=== PATIENT | male | born 1960 | race Caucasian/White ===

== ENCOUNTER → 2017-01-06 | Outpatient (CLI) | payer OTHER | LOC: NM 13:00 | DX: R10.11 Right upper quadrant pain (principal) | CPT/HCPCS: 78227; A9537; J2805 ==

== ENCOUNTER → 2017-01-09 | Outpatient (CLI) | payer OTHER | LOC: KOH-I 13:54 | DX: R10.11 Right upper quadrant pain (principal); N20.0 Calculus of kidney | CPT/HCPCS: 74150 ==

== ENCOUNTER 2017-03-26 14:26 | Emergency (ER) | payer OTHER ==
[2017-03-26 16:16] LABS: HEMOGLOBIN 14.2 gm/dl (14.0-17.5); RED BLOOD COUNT 4.65 M/UL (4.20-5.50); WHITE BLOOD COUNT 10.1 K/UL (4.5-11.0)
[2017-03-26 16:36] LABS: BUN/CREATININE RATIO 19 (0-10)
== END 2017-03-26 19:00 | disposition home or self-care (01) ==
LOC: ER1 14:26
PROVIDERS: Radiology Radiation Oncology
DX: N13.2 Hydronephrosis with renal and ureteral calculous obstruction (principal); E11.65 Type 2 diabetes mellitus with hyperglycemia; I10 Essential (primary) hypertension; F17.220 Nicotine dependence, chewing tobacco, uncomplicated
CPT/HCPCS: 36415; 80053; 81001; 83690; 85025; 87086; 96361; 96374; 96375; 96376; 99284; J2270; J2405; J2550

== ENCOUNTER 2020-10-23 14:05 | Inpatient (IN) | payer OTHER ==
[2020-10-23 15:00] LABS: HEMOGLOBIN 15.1 gm/dl (14.0-17.5); RED BLOOD COUNT 4.89 M/UL (4.20-5.50); WHITE BLOOD COUNT 12.1 K/UL (4.5-11.0)
[2020-10-23 15:16] LABS: BUN/CREATININE RATIO 22 (0-10)
[2020-10-23] MEDS ORDERED: VASCEPA1 GM PO (18:14)
[2020-10-23] MEDS ORDERED: ATORVASTATIN CA40 MG PO (18:14)
[2020-10-23] MEDS ORDERED: METOPROLOL SUCC50 MG PO (18:15)
[2020-10-23] MEDS ORDERED: ASPIRIN CHEWABL81 MG PO (18:15)
[2020-10-23] MEDS ORDERED: NEURONTIN800 MG PO (18:23)
[2020-10-23] MEDS ORDERED: VITAMIN B-122500 MCG SL (18:23)
[2020-10-23] MEDS ORDERED: PROTONIX20 MG PO (18:24)
[2020-10-23] MEDS ORDERED: BASAGLAR K100 UNIT/1 SQ (18:25)
[2020-10-23] MEDS ORDERED: ADMELOG SO100 UNIT/1 SQ (18:25)
[2020-10-23] MEDS ORDERED: ALL DAY ALLERGY10 M2 PO (18:26)
[2020-10-23] MEDS ORDERED: ZESTRIL10 MG PO (18:26)
[2020-10-23] MEDS ORDERED: VOLTAREN ARTHRI20 GM TOP (18:27)
[2020-10-23] MEDS ORDERED: FLOMAX 0.4 MG0.4 MG PO (18:27)
[2020-10-24 06:59] LABS: HEMOGLOBIN 13.6 gm/dl (14.0-17.5); RED BLOOD COUNT 4.5 M/UL (4.20-5.50); WHITE BLOOD COUNT 10.6 K/UL (4.5-11.0)
[2020-10-24 07:23] LABS: BUN/CREATININE RATIO 24 (0-10)
[2020-10-25 05:19] LABS: HEMOGLOBIN 12.9 gm/dl (14.0-17.5); RED BLOOD COUNT 4.25 M/UL (4.20-5.50); WHITE BLOOD COUNT 8.4 K/UL (4.5-11.0)
[2020-10-25 05:52] LABS: BUN/CREATININE RATIO 20 (0-10)
--- NOTE | 2020-10-25 15:16 | NUR ---
PT STATES HES FEELING SWEATY CHECKED HIUS SUGAR AND WAS 65 GOT HIM REGULAR SODA AND CANDY BAR TO EAT , INSTRUCTED NOT TO GET OOB WITHOUT ASSISTANCE, PT VERBALIZES
[2020-10-26 07:33] LABS: HEMOGLOBIN 12.1 gm/dl (14.0-17.5); RED BLOOD COUNT 4.13 M/UL (4.20-5.50); WHITE BLOOD COUNT 8.3 K/UL (4.5-11.0)
[2020-10-26 07:52] LABS: BUN/CREATININE RATIO 15 (0-10)
[2020-10-26] MEDS ORDERED: DALVANCE500 MG IV (10:53)
[2020-10-27 05:18] LABS: HEMOGLOBIN 13.5 gm/dl (14.0-17.5); RED BLOOD COUNT 4.46 M/UL (4.20-5.50); WHITE BLOOD COUNT 8.2 K/UL (4.5-11.0)
[2020-10-27 05:37] LABS: BUN/CREATININE RATIO 14 (0-10)
== END 2020-10-27 17:36 | disposition home or self-care (01) | DRG 872 ==
LOC: ER1 14:05 → CDU 17:46 → M/S 21:40
PROVIDERS: Internal Medicine; Physician Assistant; Physician Assistant Medical; ADMIT Internal Medicine
DX: A41.02 Sepsis due to Methicillin resistant Staphylococcus aureus (principal); L03.113 Cellulitis of right upper limb; I10 Essential (primary) hypertension; E78.5 Hyperlipidemia, unspecified; G62.9 Polyneuropathy, unspecified; K21.9 Gastro-esophageal reflux disease without esophagitis; N40.0 Benign prostatic hyperplasia without lower urinary tract symptoms; Z95.820 Peripheral vascular angioplasty status with implants and grafts; I25.2 Old myocardial infarction; Z87.442 Personal history of urinary calculi; F17.210 Nicotine dependence, cigarettes, uncomplicated; Z82.49 Family history of ischemic heart disease and other diseases of the circulatory system; Z83.3 Family history of diabetes mellitus; W22.09XA Striking against other stationary object, initial encounter; Z20.828 Contact with and (suspected) exposure to other viral communicable diseases; E11.65 Type 2 diabetes mellitus with hyperglycemia; B95.7 Other staphylococcus as the cause of diseases classified elsewhere
CPT/HCPCS: 36415; 73201; 80048; 80053; 80202; 82962; 83036; 83605; 83735; 85025; 85027; 85652; 86140; 87040; 87070; 87077; 87186; 87205; 96365; 96366; 96367; 96372; 96375; 96376; 99285; G0378; J1650; J2185; J2405; J3370; J7030; J7070; Q9967; U0003

== ENCOUNTER → 2020-10-28 | Outpatient (CLI) | payer OTHER ==
[~2020-10-28] MED LIST: ADMELOG SO100 UNIT/1 SQ; ALL DAY ALLERGY10 M2 PO; ASPIRIN CHEWABL81 MG PO; ATORVASTATIN CA40 MG PO; BASAGLAR K100 UNIT/1 SQ; DALVANCE500 MG IV; FLOMAX 0.4 MG0.4 MG PO; METOPROLOL SUCC50 MG PO; NEURONTIN800 MG PO; PROTONIX20 MG PO; VASCEPA1 GM PO; VITAMIN B-122500 MCG SL; VOLTAREN ARTHRI20 GM TOP; ZESTRIL10 MG PO
== END ==
LOC: OPSV 13:11
DX: L03.119 Cellulitis of unspecified part of limb (principal)
CPT/HCPCS: 96365; J0875; J7060

== ENCOUNTER → 2020-12-29 | Outpatient (CLI) | payer OTHER ==
[2020-12-29 11:18] LABS: BUN/CREATININE RATIO 17 (0-10)
[2020-12-30 12:15] LABS: CREATININE, URINE 118.2 mg/dL (Not Estab.)
== END ==
LOC: LAB 10:05
PROVIDERS: Internal Medicine Endocrinology, Diabetes & Metabolism
DX: E11.21 Type 2 diabetes mellitus with diabetic nephropathy (principal); E78.5 Hyperlipidemia, unspecified; E53.8 Deficiency of other specified B group vitamins; Z79.4 Long term (current) use of insulin
CPT/HCPCS: 36415; 80053; 80061; 82043; 82570; 82607; 83036; 83735

== ENCOUNTER → 2021-01-04 | Outpatient (CLI) | payer OTHER | LOC: LBRF 11:12 | DX: R31.9 Hematuria, unspecified (principal) | CPT/HCPCS: 81001 ==

== ENCOUNTER → 2021-05-25 | Outpatient (CLI) | payer OTHER ==
[2021-05-25 10:11] LABS: HEMOGLOBIN 14.8 gm/dl (14.0-17.5); RED BLOOD COUNT 4.77 M/UL (4.20-5.50); WHITE BLOOD COUNT 7.9 K/UL (4.5-11.0)
[2021-05-25 13:00] LABS: BUN/CREATININE RATIO 17 (0-10)
[2021-05-26 09:13] LABS: CREATININE, URINE 55.7 mg/dL (Not Estab.)
== END ==
LOC: LAB 09:31
PROVIDERS: Family Medicine
DX: Z12.5 Encounter for screening for malignant neoplasm of prostate (principal); N40.0 Benign prostatic hyperplasia without lower urinary tract symptoms; R79.89 Other specified abnormal findings of blood chemistry; E53.8 Deficiency of other specified B group vitamins; E78.2 Mixed hyperlipidemia; E11.65 Type 2 diabetes mellitus with hyperglycemia
CPT/HCPCS: 36415; 80053; 80061; 82043; 82570; 82607; 84153; 84439; 84443; 85027

== ENCOUNTER → 2021-06-08 | Outpatient (CLI) | payer OTHER | LOC: KOH-I 06-07 11:00 | DX: F17.210 Nicotine dependence, cigarettes, uncomplicated (principal) | CPT/HCPCS: 71271 ==

== ENCOUNTER → 2021-07-20 | Outpatient (CLI) | payer OTHER ==
[2021-07-20 13:58] LABS: BUN/CREATININE RATIO 17 (0-10)
== END ==
LOC: LAB 12:21
PROVIDERS: Internal Medicine Endocrinology, Diabetes & Metabolism
DX: E11.21 Type 2 diabetes mellitus with diabetic nephropathy (principal); E78.5 Hyperlipidemia, unspecified; Z79.4 Long term (current) use of insulin
CPT/HCPCS: 36415; 80053; 80061; 83036

== ENCOUNTER → 2021-08-30 | Outpatient (CLI) | payer OTHER ==
[2021-08-30 11:20] LABS: BUN/CREATININE RATIO 17 (0-10)
== END ==
LOC: LAB 10:14
PROVIDERS: Internal Medicine Endocrinology, Diabetes & Metabolism
DX: E11.21 Type 2 diabetes mellitus with diabetic nephropathy (principal); E78.5 Hyperlipidemia, unspecified; Z79.4 Long term (current) use of insulin
CPT/HCPCS: 36415; 80048